=== PATIENT | female | born 1950 | race Caucasian/White ===

== ENCOUNTER → 2016-08-03 | Outpatient (CLI) | payer MEDICARE ==
[2016-06-26 15:33] VITALS: BP 97/60
[~2016-08-03] MED LIST: ASPI-482 PO; CALC-77 PO; CALC3.7S5 NS; CETI10TA77 PO; CHOL10003 PO; CITA20TA5 PO; FISH1CAP PO; GABA-586 PO; GLUC1TAB26 PO; METH-38 PO; MULT-245 PO; OMEP40CA5 PO; ONDA4TAB7 PO; OXYC-244 PO; OXYC1TAB7 PO; VITA200T6 PO
--- NOTE | 2016-08-03 13:25 | RAD ---
INDICATION: LOW BACK PAIN. COMPARISON: 05/25/2016 IMPRESSION: Lumbar spine: 3 views obtained. Postoperative changes status post posterior spinal fusion at L4-5 and L5-S1. Repeat demonstration of grade 2 anterolisthesis of L4 on 5. Very subtle grade 1 anterolisthesis L5 on S1. Degenerative changes spine. No definite acute fracture.
== END | disposition home or self-care (01) ==
LOC: RAD 09:50
PROVIDERS: ATTEND Neurological Surgery
DX: M43.06 Spondylolysis, lumbar region (principal); Z78.0 Asymptomatic menopausal state; Z98.1 Arthrodesis status
CPT/HCPCS: 72100

== ENCOUNTER → 2016-09-11 | Outpatient (CLI) | payer MEDICARE ==
[2016-06-26 15:33] VITALS: BP 97/60
--- NOTE | 2016-09-11 12:57 | RAD ---
EXAM: Lumbar spine, 2 views. HISTORY: Pain. COMPARISON: 08/03/2016. FINDINGS: Frontal and lateral views of the lumbar spine are obtained. There is instrumented posterior spinal fusion and left neck medial decompression at L4-S1. There is grade 2-3 anterolisthesis of L4 and L5 and grade 1 anterolisthesis of L5 on S1. There is degenerative endplate remodeling with disc space narrowing and osteophytosis predominantly at L5 chest 1. There is dextroscoliosis. IMPRESSION: 1. Instrumented fusion at L4-S1. 2. Grade 2-3 anterolisthesis of L4 on L5 and grade 1 anterolisthesis of L5 on S1. 3. Degenerative change predominantly at the lumbosacral junction. 4. Dextro scoliosis.
== END | disposition home or self-care (01) ==
LOC: RAD 11:56
PROVIDERS: ATTEND Neurological Surgery
DX: M41.86 Other forms of scoliosis, lumbar region (principal)
CPT/HCPCS: 72100

== ENCOUNTER → 2016-12-11 | Outpatient (CLI) | payer MEDICARE ==
[2016-06-26 15:33] VITALS: BP 97/60
[~2016-12-11] MED LIST changes: -OXYC-244 PO; +OXYC-327 PO
--- NOTE | 2016-12-11 16:26 | RAD ---
Three-view lumbar spine series History: Back surgery in June 2016. Follow-up study. Comparison: September 11, 2016. Findings: Mild rotatory dextroscoliosis of the lumbar spine is seen. The transverse processes are intact. 6 lumbar-type vertebrae are present. Therefore, the lower most lumbar vertebra will be labeled as a transitional vertebra. Again seen is a grade 2-3 anterolisthesis of L5-transitional vertebra level which is unchanged. Grade 1 anterolisthesis of transitional vertebra-S1 level is unchanged. Surgical fusion hardware is seen at L5 and transitional vertebra and S1 levels. Laminectomy of L5 is seen Alignment is stable. No discitis or osteolytic process or compression fracture is seen. IMPRESSION: Stable lumbar spine study.
== END | disposition home or self-care (01) ==
LOC: RAD 15:42
PROVIDERS: ATTEND Neurological Surgery
DX: M54.16 Radiculopathy, lumbar region (principal); M41.86 Other forms of scoliosis, lumbar region; Z98.890 Other specified postprocedural states
CPT/HCPCS: 72100

== ENCOUNTER → 2017-03-12 | Outpatient (CLI) | payer MEDICARE ==
[2016-06-26 15:33] VITALS: BP 97/60
--- NOTE | 2017-03-12 14:04 | RAD ---
EXAM: Lumbar spine 2 or 3 views. HISTORY: Low back pain after lumbar fusion COMPARISON: 12/11/2016. FINDINGS: There are instrumented posterior fusion changes from L4 through S1. There are bilateral pedicle screws fixed by vertical rods at each level. There are partial laminectomy changes on the left at L5. There is grade 2 anterolisthesis at L4-5. It is grade 1 at L5-S1. There is a mild lumbar dextrocurvature. Vertebral body heights are maintained, and no fractures are identified. Degenerative disc disease is moderate from L3 through S1. There is at least mild osteopenia. IMPRESSION: 1. L4-S1 instrumented posterior fusion. Anterolisthesis is grade 2 at L4-5 and grade 1 and L5-S1. Alignment is stable. 2. Moderate degenerative disc disease from L3 through L5 appear stable from L4 through S1 and may have progressed at L3-4.
== END | disposition home or self-care (01) ==
LOC: RAD 13:18
PROVIDERS: ATTEND Neurological Surgery
DX: M51.36 Other intervertebral disc degeneration, lumbar region (principal)
CPT/HCPCS: 72100

== ENCOUNTER → 2017-03-23 | Outpatient (CLI) | payer MEDICARE ==
[2016-06-26 15:33] VITALS: BP 97/60
[~2017-03-23] MED LIST changes: +IOHEXOL 180 MG/ML 10 ML VIAL. IT ONE; +LIDOCAINE 1% Multi-Dose 20 ML VIAL. ID ONE
--- NOTE | 2017-03-23 11:13 | [facility] ---
CT lumbar spine with contrast 03/23/2017 Lumbar myelography INDICATION: Lumbar radiculopathy, pain radiating down bilateral lower extremities for 2 months. History of spinal fusion. COMPARISON: Lumbar spine CT June 20, 2016 TECHNIQUE: Multiple axial CT images of the lumbar spine were obtained after the intrathecal administration of 18 cc Omnipaque 180. Coronal and sagittal reformats are provided. PROCEDURE: Risks and benefits were discussed with the patient after which informed consent was obtained. Patient was placed prone on the fluoroscopy table. Site was marked under fluoroscopic guidance. The skin was prepped and draped in normal sterile fashion. 1 percent lidocaine was administered for superficial anesthetic effect. Subsequently, utilizing fluoroscopic guidance, a 22-gauge spinal needle was inserted into the thecal sac at the L3-L4 vertebral level. Intrathecal location was confirmed. 18 cc of Omnipaque 180 was injected into the thecal sac. Needle was removed. Patient tolerated the procedure well. No complications are identified at time of procedure. 5 images were acquired. Fluoroscopy time: 1 minute and 26 seconds. FINDINGS: There is grade 1 anterolisthesis of L4 on L5 and L5 on S1. Posterior lumbar fusion hardware is identified with bilateral pedicle screws and dual rods at L4, L5 and S1. No significant lucency is identified surrounding the lumbosacral hardware. No fracture is identified. Laminectomy changes are identified at L4-L5 and L5-S1. There is disc height loss at L4-L5 and L5-S1. Vacuum disc phenomenon is identified at L5-S1. Nerve roots are normal in appearance. L1-L2: Disc is normal in configuration. There is normal appearance of the facet joints. No neuroforaminal or spinal canal stenosis. L2-L3: Disc is normal in configuration. There is no facet arthropathy. There is no neuroforaminal or spinal canal stenosis. L3-L4: There is minimal disc bulge. There is mild facet arthropathy. No neural foraminal or spinal canal stenosis. L4-L5: This is a level of fusion and left laminectomy. There is facet arthropathy with moderate to severe neuroforaminal stenosis. Filling of the neural foramina is not noted. There is no spinal canal stenosis secondary to decompression at this level. L5-S1: This is a level effusion and decompression. No significant neuroforaminal or spinal canal stenosis. IMPRESSION: Postoperative changes from posterior lumbar fusion from L4 through S1 are identified, as detailed above. There is no significant residual spinal canal stenosis. There is suggestion of moderate to severe neuroforaminal stenosis at L4-L5 without filling of the nerve roots at this level. Electronically signed by: Sushma Shaffer MD (03/23/2017 11:09 AM) [id number]
== END | disposition home or self-care (01) ==
LOC: KCIC 08:48
PROVIDERS: ATTEND Neurological Surgery
DX: M54.16 Radiculopathy, lumbar region (principal); M48.061 Spinal stenosis, lumbar region without neurogenic claudication; Z98.1 Arthrodesis status; Z79.01 Long term (current) use of anticoagulants
CPT/HCPCS: 72132; 72265

== ENCOUNTER → 2017-04-05 | Outpatient (CLI) | payer MEDICARE ==
[2016-06-26 15:33] VITALS: BP 97/60
[~2017-04-05] MED LIST changes: -IOHEXOL 180 MG/ML 10 ML VIAL. IT ONE; -LIDOCAINE 1% Multi-Dose 20 ML VIAL. ID ONE
--- NOTE | 2017-04-05 17:09 | RAD ---
EXAM: Lumbar spine 2 views with flexion/extension. HISTORY: Lumbar instrumented posterior fusion, low back pain and lower extremity pain. COMPARISON: 03/12/2017. FINDINGS: Instrumented posterior fusion is noted from L4 through S1. Anterolisthesis is grade 2 at L4-5 and grade 1 and L5-S1. There is no clear translational motion across the fused segments on flexion or extension, or at other levels. No fractures are identified. Degenerative disc disease is moderate from L4 through S1 and mild at L3-4. It is mild within the lower thoracic spine. IMPRESSION: 1. L4-S1 instrumented posterior fusion across grade 1/2 anterolisthesis. No clear translational motion on flexion/extension.
== END | disposition home or self-care (01) ==
LOC: RAD 13:59
PROVIDERS: ATTEND Neurological Surgery
DX: M51.37 Other intervertebral disc degeneration, lumbosacral region (principal)
CPT/HCPCS: 72120

== ENCOUNTER → 2017-05-23 | Outpatient (CLI) | payer MEDICARE ==
[2016-06-26 15:33] VITALS: BP 97/60
--- NOTE | 2017-05-23 14:41 | [facility] ---
CT face without contrast History: Chronic headaches, sinus congestion and pressure Technique: CT of the face with attention to the paranasal sinuses was performed without intravenous contrast. Axial, sagittal, and coronal reconstructions were obtained. Exposure: One or more of the following individualized dose reduction techniques were utilized for this examination: 1. Automated exposure control 2. Adjustment of the mA and/or kV according to patient size 3. Use of iterative reconstruction technique Findings: There is complete opacification of the right aspect of the sphenoid sinus. Left aspect of the sphenoid sinus is clear. Bilateral frontal and maxillary sinuses are clear. Ethmoid air cells are clear. No mucoperiosteal reaction is identified. Bilateral ostiomeatal units appear patent. Impression: 1. Sphenoid sinus disease. 2. Other paranasal sinuses are clear. Electronically signed by: Lanre Hammond MD (05/23/2017 2:38 PM) [place] [id number]
== END | disposition home or self-care (01) ==
LOC: KCIC CT 13:53
PROVIDERS: ATTEND Otolaryngology
DX: J32.3 Chronic sphenoidal sinusitis (principal)
CPT/HCPCS: 70486

== ENCOUNTER → 2017-07-23 | Outpatient (CLI) | payer MEDICARE | END | disposition home or self-care (01) | LOC: RAD 07:34 | DX: M47.816 Spondylosis without myelopathy or radiculopathy, lumbar region (principal); Q76.49 Other congenital malformations of spine, not associated with scoliosis; Z98.1 Arthrodesis status | CPT/HCPCS: 72110 ==

== ENCOUNTER 2020-08-05 08:31 | Outpatient (CLI) | payer MEDICARE ==
[~2020-08-05 08:31] MED LIST changes: -CITA20TA5 PO; +CITA20TA6 PO; -GABA-586 PO; +GABA300C18 PO; +OMEP40CA45 PO; -OMEP40CA5 PO; -OXYC-327 PO; +OXYC1TAB19 PO
[2020-08-05] MEDS ORDERED: CONTRAST GIVEN. MC PRN (08:45)
[2020-08-05] MEDS ORDERED: IOHEXOL 180 MG/ML 10 ML VIAL. EPID ONE (08:45)
[2020-08-05 10:15] VITALS: BP 125/77
[2020-08-05 10:30] VITALS: BP 110/68
--- NOTE | 2020-08-05 11:12 | NUR ---
Patient d/c, taken to vehicle via wheelchair. Daughter driving. No PIV. Bandaid on mid-lower back-- clean, dry, intact. Instructions provided on procedure, incision care. Stressed importance of not taking Citalopram x24 hours. Patient verbalized understanding. Advised patient to minimize lifting, exercising for a few days-- states she "absolutely" has to return to work tomorrow, but will limit activity. Offered work release letter for tomorrow, but patient declined. Education provided on possible side effects-- aware she needs to lay back w/ pillows under her today to minimize r/o headache. Patient has Dr. Messer's phone number and will call his office w/ any questions or come to ER w/ any complications.
--- NOTE | 2020-08-05 16:46 | RAD ---
EXAM: Fluoroscopically guided lumbar puncture with iodinated contrast injection for CT myelography. HISTORY: 69-year-old woman status post lumbar spinal posterior fusion years ago with developing numbn ess and tingling in her lower extremities, most conspicuously in the left leg. COMPARISON: Report on the CT lumbar myelogram of 03/23/2017, lumbar spine x-ray series of 07/23/2017. TECHNIQUE: The risks and benefits of the procedure were discussed with the patient and written and ve rbal consent were obtained. A time out procedure was performed. Fluoroscopic imaging of the lumbar spine was performed. The overlying skin was sterilely prepped and infiltrated with 1% lidocaine for local anesthesia. A 22-gauge spinal needle was then advanced into t he lumbar spinal canal under fluoroscopic guidance from a left interlaminar L3-L4 approach. Intrathec al needle positioning was confirmed with return of clear CSF. 18 mL of Omnipaque 180 was then injecte d under fluoroscopic control into the central canal. Instrumentation was withdrawn and a sterile dres sing placed. Thereafter, multiple spot fluoroscopic images were obtained with the patient in the righ t lateral decubitus position, supine LPO and WEBER projections, and then upright in the PA, lateral, la teral flexion lateral extension positions. There were no immediate complications. The patient was tra nsferred to the CT suite for additional imaging. Fluoroscopy time 1.8 minutes. 10 images were obtaine d. FINDINGS: The patient has posterior spinal fusion hardware spanning L4-S1 bilaterally without cross-links. Successful opacification of the thecal sac was achieved, revealing moderate central canal stenosis at the L3-L4 level without evidence of a myelographic block. There was a differential density at the L3 level, suggesting a split injection. The lateral flexion and extension views did not reveal evidence of abnormal motion. IMPRESSION: 1. Successful fluoroscopically guided thecal sac injection of iodinated contrast for CT myelography. 2. No evidence of abnormal motion with flexion or extension on lumbar myelographic views. 3. Please refer to the separate CT lumbar myelogram report for additional detail. EXAM: CT Lumbar Spine Myelogram INDICATION: Reason: M54.5 M54.16left leg tingling1.8 min FT,10 flouro images,18cc omnipaque 180 / Spl . Instructions: / History: TECHNIQUE: Following intrathecal injection of contrast, multiple contiguous axial CT images were obt ained through the lumbar spine. Post-processing reconstructed images were obtained for interpretation . All CT scans performed at this facility utilize dose optimization techniques as appropriate to the exam, including the following: Automated exposure control and adjustment of the mA and/or KV accordin g to patient size (this includes techniques or standardized protocols for targeted exams where dose i s indication/reason for exam). COMPARISON: Lumbar myelographic images from earlier the same day, 5 view lumbar spine x-rays of 018 FINDINGS: The lowest fully formed disc is referred to as the L5-S1 level. ALIGNMENT: Alignment again shows grade 1-2 anterolisthesis of L4 on L5 measuring 9.6 mm and grade 1 a nterolisthesis of L5 on S1 measuring 8 mm. Mild rightward convexity curvature of the lumbar spine, ap ex at L3. OSSEOUS: No evidence of fracture or bone destruction. Left L3 laminotomy and L4 bilateral laminotomy with spinous process resection. Right and pedicle screw construct posterior fusion spanning L4-S1 is present bilaterally without interlocking screws. No evidence of hardware loosening, migration or mishel lure. Appearance is similar to the previous exam. CONUS MEDULLARIS & CAUDA EQUINA: The conus medullaris is in normal position, terminating at L1. The conus medullaris and cauda equine are intrinsically normal. There is evidence of dilation of the reyna medullary veins in the visualized spinal cord. SOFT TISSUES: Unremarkable. No fluid collection or mass is identified. Moderate fecal debris in the rectal vault is incidentally noted. DISC LEVELS: T12-L1: Unremarkable. L1-L2: Unremarkable. L2-L3: A small amount of epidural contrast material is present superficial to the right ligamentum fl avum. A small amount of injected contrast material is present in the subdural space along the left as pect of the thecal sac. No significant central canal or foraminal stenosis. L3-L4: No significant stenosis. Small amount of subdural injection of contrast is present anteriorly and posteriorly asymmetric left there is moderate left and mild right foraminal narrowing. L4-L5: At this level, the nerve roots appear in close apposition in the thecal sac, best illustrated on image 5 of series 13. There is mild narrowing of the bilateral foramina. No significant central ca nal stenosis. L5-S1: Moderate bilateral foraminal narrowing. Widely patent central canal. Nerve roots appear cluste red along the lateral margins of the thecal sac. IMPRESSION: 1. 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 2. 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 Electronically signed by: Kamran Arboleda MD (08/05/2020 4:44 PM) [id number]
== END 2020-08-05 11:10 | disposition home or self-care (01) ==
LOC: RAD 08:31
PROVIDERS: ATTEND Neurological Surgery
DX: M48.061 Spinal stenosis, lumbar region without neurogenic claudication (principal); M19.90 Unspecified osteoarthritis, unspecified site; Z90.710 Acquired absence of both cervix and uterus; Z98.890 Other specified postprocedural states; Z79.899 Other long term (current) drug therapy; Z79.82 Long term (current) use of aspirin
CPT/HCPCS: 62304; 72132; Q9965